=== PATIENT | male | born 1950 | race African-American/Black ===

== ENCOUNTER 2017-09-29 17:34 | Emergency (ER) | payer MEDICARE, OTHER ==
[~2017-09-29] VITALS: Ht 170.2 cm; Wt 70.9 kg
[~2017-09-29 17:34] MED LIST: CLONIDINE; LISINOPRIL; OXYC15TA82 PO
[2017-09-29 18:05] VITALS: BP 196/110
[2017-09-29] MEDS ORDERED: CLON.2 PO (18:12)
[2017-09-29] MEDS ORDERED: LISI-660 PO (18:12)
== END 2017-09-29 20:32 | disposition left against medical advice (07) ==
LOC: EMS 17:36
DX: Z53.21 Procedure and treatment not carried out due to patient leaving prior to being seen by health care provider (principal)

== ENCOUNTER 2017-10-06 11:55 | Emergency (ER) | payer MEDICARE, OTHER ==
[~2017-10-06] VITALS: Ht 170.2 cm; Wt 70.5 kg
[~2017-10-06 11:55] MED LIST changes: +CLON.2 PO; -CLONIDINE; +LISI-660 PO; -LISINOPRIL
[2017-10-06 14:08] LABS: BASOPHILS % (AUTO) 0.3 % (0.0-2.0); EOSINOPHILS % (AUTO) 1.1 % (1.0-6.0); HEMATOCRIT 46.1 % (41-53); HEMOGLOBIN 15.6 g/dL (13.5-17.5); LYMPHOCYTES # (AUTO) 1.2 K/uL (1.0-4.8); LYMPHOCYTES % (AUTO) 23.2 % (22.0-44.0); MEAN CORPUSCULAR HEMOGLOBIN 31.6 pg (26.0-34.0); MEAN CORPUSCULAR HGB CONC 33.8 G/dL (31.0-37.0); MEAN CORPUSCULAR VOLUME 94 fL (80-100); MONOCYTES # (AUTO) 0.3 K/uL (0.1-1.0); MONOCYTES % (AUTO) 6.3 % (2.0-9.0); NEUTROPHILS # (AUTO) 3.4 K/uL (1.8-7.7); NEUTROPHILS % (AUTO) 69.1 % (40.0-70.0); PLATELET COUNT (AUTO) 224 K/uL (150-450); RED BLOOD CELL COUNT(AUTO) 4.92 MIL/uL (4.50-5.90)
[2017-10-06] MEDS: CloNIDine HCL 0.1 MG TABLET PO ONE (14:08)
[2017-10-06] MEDS: LISINOPRIL 10 MG TABLET PO ONE (14:08)
[2017-10-06] MEDS: ASPIRIN 81 MG CHEWABLE TABLET PO ONE (14:09)
[2017-10-06] MEDS: TraMADol HCL 50 MG TABLET PO ONE (14:09)
[2017-10-06 14:25] LABS: ANION GAP 8 mmol/L (8-16); CALCIUM, TOTAL 9.4 mg/dL (8.8-10.5); CARBON DIOXIDE 29 mmol/L (22-29); CHLORIDE 100 mmol/L (98-107); CREATININE 0.93 mg/dL (0.60-1.30); GLOMERULAR FILTR. RATE CALC > 60 mL/min (>60); GLUCOSE,RANDOM 81 mg/dL (70-110); POTASSIUM 3.9 mmol/L (3.5-5.1); SODIUM SERUM 137 mmol/L (136-145); UREA NITROGEN, BLOOD 15 mg/dL (7-18)
[2017-10-06 14:47] LABS: ALANINE AMINOTRANSFERASE 63 U/L (12-78); ALBUMIN 3.7 g/dL (3.4-5.0); ALKALINE PHOSPHATASE 67 U/L (46-116); ASPARTATE AMINOTRANSFERASE 54 U/L (15-37); BILIRUBIN,TOTAL 0.6 mg/dL (0.1-1.0); CREATINE KINASE MB 2.5 ng/mL (0-5); CREATINE KINASE, TOTAL 250 U/L (39-308)
[2017-10-06 15:08] LABS: B-TYPE NATRIURETIC PEPTIDE 34 pg/mL (0-100)
[2017-10-06 15:45] VITALS: BP 159/94
== END 2017-10-06 16:19 | disposition home or self-care (01) ==
LOC: EMS 11:56
DX: S20.212A Contusion of left front wall of thorax, initial encounter (principal); I10 Essential (primary) hypertension; W22.8XXA Striking against or struck by other objects, initial encounter; Y93.89 Activity, other specified; Y92.89 Other specified places as the place of occurrence of the external cause; Y99.8 Other external cause status
CPT/HCPCS: 71046; 93005; 99285

== ENCOUNTER 2020-11-13 00:04 | Emergency (ER) | payer MEDICARE, OTHER ==
[~2020-11-13] VITALS: Ht 172.7 cm; Wt 61.4 kg
[~2020-11-13 00:04] MED LIST changes: -CLON.2 PO; +CLON0.2T2 PO; -LISI-660 PO; +LISI-892 PO
[2020-11-13 00:38] LABS: GLUCOSE,POINT OF CARE 83 MG/DL (70-110)
[2020-11-13] MEDS ORDERED: SODIUM CHLORIDE 0.9% 1,000 ML IV ONE (01:45)
[2020-11-13 04:52] VITALS: BP 139/96
[2020-11-13 11:14] LABS: SODIUM SERUM 141 mmol/L (136-145)
[2020-11-13 11:15] LABS: ALANINE AMINOTRANSFERASE 95 U/L (12-78); ALBUMIN 3.3 g/dL (3.4-5.0); ALKALINE PHOSPHATASE 60 U/L (46-116); ANION GAP 14 mmol/L (8-16); ASPARTATE AMINOTRANSFERASE 105 U/L (15-37); BILIRUBIN,TOTAL 0.5 mg/dL (0.1-1.0); CALCIUM, TOTAL 9.3 mg/dL (8.8-10.5); CARBON DIOXIDE 23 mmol/L (22-29); CHLORIDE 104 mmol/L (98-107); CREATININE 1.54 mg/dL (0.60-1.30); GLOMERULAR FILTR. RATE CALC 54 mL/min (>60); GLUCOSE,RANDOM 89 mg/dL (70-110); POTASSIUM 3.5 mmol/L (3.5-5.1); TOTAL PROTEIN, SERUM 6.6 g/dL (6.4-8.2); UREA NITROGEN, BLOOD 15 mg/dL (7-18)
[2020-11-13 11:16] LABS: ACETAMINOPHEN < 2 mcg/mL (10-30)
[2020-11-13 11:18] LABS: HEMATOCRIT 42.9 % (41-53); HEMOGLOBIN 14.4 g/dL (13.5-17.5); MEAN CORPUSCULAR HEMOGLOBIN 32.9 pg (26.0-34.0); MEAN CORPUSCULAR VOLUME 98 fL (80-100)
[2020-11-13 11:19] LABS: BASOPHILS # (AUTO) 0.01 K/uL (0.00-0.20); BASOPHILS % (AUTO) 0.2 % (0.0-2.0); EOSINOPHILS # (AUTO) 0.04 K/uL (0.00-0.70); EOSINOPHILS % (AUTO) 0.7 % (1.0-6.0); LYMPHOCYTES # (AUTO) 1.5 K/uL (1.0-4.8); LYMPHOCYTES % (AUTO) 28.1 % (22.0-44.0); MEAN CORPUSCULAR HGB CONC 33.6 G/dL (31.0-37.0); MONOCYTES # (AUTO) 0.5 K/uL (0.1-1.0); MONOCYTES % (AUTO) 8.3 % (2.0-9.0); NEUTROPHILS # (AUTO) 3.4 K/uL (1.8-7.7); NEUTROPHILS % (AUTO) 62.3 % (40.0-70.0); PLATELET COUNT (AUTO) 195 K/uL (150-450); RED CELL DISTRIBUTION WIDTH 12.2 % (11.5-14.5)
== END 2020-11-13 05:06 | disposition home or self-care (01) ==
LOC: EMS 00:05
DX: T50.7X1A Poisoning by analeptics and opioid receptor antagonists, accidental (unintentional), initial encounter (principal); R74.01 Elevation of levels of liver transaminase levels; R79.89 Other specified abnormal findings of blood chemistry; F41.9 Anxiety disorder, unspecified; I10 Essential (primary) hypertension; Z79.899 Other long term (current) drug therapy; Y92.89 Other specified places as the place of occurrence of the external cause
CPT/HCPCS: 71045; 80053; 82962; 85025; 93005; 96360; 99285; G0480; G0481

== ENCOUNTER 2023-09-02 13:56 | Inpatient (IN) | payer MEDICARE, OTHER ==
[~2023-09-02] VITALS: Ht 170.2 cm; Wt 62.2 kg
[2023-09-02 14:47] LABS: BASOPHILS % (AUTO) 1.1 % (0.0-2.0); EOSINOPHILS % (AUTO) 0.8 % (1.0-6.0); HEMATOCRIT 47.1 % (41-53); HEMOGLOBIN 15.9 g/dL (13.5-17.5); LYMPHOCYTES # (AUTO) 0.9 K/uL (1.0-4.8); LYMPHOCYTES % (AUTO) 22.5 % (22.0-44.0); MEAN CORPUSCULAR HEMOGLOBIN 32.5 pg (26.0-34.0); MEAN CORPUSCULAR HGB CONC 33.8 G/dL (31.0-37.0); MEAN CORPUSCULAR VOLUME 96 fL (80-100); MONOCYTES # (AUTO) 0.4 K/uL (0.1-1.0); MONOCYTES % (AUTO) 8.9 % (2.0-9.0); NEUTROPHILS # (AUTO) 2.7 K/uL (1.8-7.7); NEUTROPHILS % (AUTO) 66.7 % (40.0-70.0); PLATELET COUNT (AUTO) 177 K/uL (150-450); RED BLOOD CELL COUNT(AUTO) 4.88 MIL/uL (4.50-5.90); RED CELL DISTRIBUTION WIDTH 13.9 % (11.5-14.5)
[2023-09-02 14:53] LABS: ANION GAP 6 mmol/L (8-16); CALCIUM, TOTAL 9.9 mg/dL (8.8-10.5); CARBON DIOXIDE 28 mmol/L (22-29); CHLORIDE 105 mmol/L (98-107); CREATININE 0.97 mg/dL (0.60-1.30); GLOMERULAR FILTR. RATE CALC > 60 mL/min (>60); GLUCOSE,RANDOM 77 mg/dL (70-110); POTASSIUM 4.3 mmol/L (3.5-5.1); SODIUM SERUM 139 mmol/L (136-145); UREA NITROGEN, BLOOD 9 mg/dL (7-18)
[2023-09-02 14:58] LABS: ALANINE AMINOTRANSFERASE 55 U/L (12-78); ALKALINE PHOSPHATASE 66 U/L (46-116); ASPARTATE AMINOTRANSFERASE 41 U/L (15-37); BILIRUBIN,TOTAL 0.8 mg/dL (0.1-1.0); TOTAL PROTEIN, SERUM 8.3 g/dL (6.4-8.2)
[2023-09-02 15:00] LABS: TROPONIN I-HIGH SENSITIVITY 60 ng/L (<76)
[2023-09-02 15:18] LABS: B-TYPE NATRIURETIC PEPTIDE 63 pg/mL (0-100)
[2023-09-02] MEDS ORDERED: LABETALOL HCL 5 MG/ML 20 ML VIAL IVP ONE (15:30)
[2023-09-02] MEDS ORDERED: ACETAMINOPHEN 325 MG TABLET PO PRN (17:00)
[2023-09-02] MEDS ORDERED: ONDANSETRON HCL 4 MG/2 ML VIAL IVP PRN (17:00)
[2023-09-02] MEDS ORDERED: MAGNESIUM HYDROXIDE SUSPENSION 30 ML UDCUP PO PRN (17:00)
[2023-09-02] MEDS ORDERED: OxyCODONE HCL/ACETAMINOPHEN 5-325 MG TABLET PO PRN (17:00)
[2023-09-02 17:10] LABS: COVID AG,FIA SOURCE NASAL SWAB
[2023-09-02] MEDS: ASPIRIN 81 MG CHEWABLE TABLET PO SCH (17:14)
[2023-09-02] MEDS: AmLODIPine BESYLATE 10 MG TABLET PO SCH (17:14)
[2023-09-02 17:17] LABS: APPEARANCE,URINE CLEAR (CLEAR); BILIRUBIN,URINE NEGATIVE (NEGATIVE); COLOR,URINE YELLOW (YELLOW); GLUCOSE, URINE (UA) NEGATIVE (NEGATIVE); KETONES,URINE TRACE mg/dL (NEGATIVE); LEUKOCYTE ESTERASE ,URINE NEGATIVE (NEGATIVE); NITRATE,URINE NEGATIVE (NEGATIVE); OCCULT BLOOD,URINE NEGATIVE (NEGATIVE); PROTEIN,URINE TRACE mg/dL (NEGATIVE); SPECIFIC GRAVITIY, URINE 1.022 (1.003-1.030); UROBILINOGEN,URINE <=1.0 mg/dL (<=1.0)
[2023-09-02 17:23] LABS: ALCOHOL, URINE DRUG SCREEN NEGATIVE (NEGATIVE); AMPHET/METH SCREEN,URINE NEGATIVE (NEGATIVE); BARBITURATE SCREEN, URINE NEGATIVE (NEGATIVE); BENZODIAZEPINES SCREEN,URINE NEGATIVE (NEGATIVE); CANNABINOID SCREEN,URINE NEGATIVE (NEGATIVE); COCAINE SCREEN,URINE NEGATIVE (NEGATIVE); METHADONE SCREEN, URINE NEGATIVE (NEGATIVE); OPIATE SCREEN,URINE NEGATIVE (NEGATIVE); PHENCYCLIDINE SCREEN,URINE NEGATIVE (NEGATIVE)
[2023-09-02 17:59] LABS: SARS-COV2 (COVID) ANTIGEN,FIA Negative (Negative)
[2023-09-02] MEDS: CloNIDine HCL 0.1 MG TABLET PO PRN (18:23)
[2023-09-02 20:34] VITALS: BP 143/94; PULSE 56; RESP 18; TEMP 98.2
[2023-09-02] MEDS: DOCUSATE SODIUM 100 MG CAPSULE PO SCH (20:48)
[2023-09-02] MEDS: LOSARTAN POTASSIUM 25 MG TABLET PO SCH (20:48)
[2023-09-02] MEDS: HEPARIN SODIUM,PORCINE 5,000 UNITS/ML VIAL SQ SCH (23:33)
[2023-09-03] VITALS (7 sets, daily range): BP systolic 97–161; BP diastolic 65–83; PULSE 46–70; RESP 16–18; TEMP 97.7–98
[2023-09-03] MEDS: CloNIDine HCL 0.1 MG TABLET PO PRN (06:15)
[2023-09-03] MEDS: DOCUSATE SODIUM 100 MG CAPSULE PO SCH ×2 (08:05→20:19)
[2023-09-03] MEDS: ATORVASTATIN CALCIUM 20 MG TABLET PO SCH (08:05)
[2023-09-03] MEDS: HEPARIN SODIUM,PORCINE 5,000 UNITS/ML VIAL SQ SCH ×3 (08:06→23:57)
[2023-09-03] MEDS: ASPIRIN 81 MG CHEWABLE TABLET PO SCH (08:06)
[2023-09-03] MEDS: LOSARTAN POTASSIUM 25 MG TABLET PO SCH ×2 (08:07→20:19)
[2023-09-03] MEDS: AmLODIPine BESYLATE 10 MG TABLET PO SCH (08:07)
[2023-09-03] MEDS: FAMOTIDINE 20 MG TABLET PO SCH (08:07)
[2023-09-04 04:50] VITALS: BP 148/79; PULSE 56; RESP 18; TEMP 97.8
[2023-09-04 07:35] VITALS: BP 132/80; PULSE 52; RESP 18; TEMP 98
[2023-09-04] MEDS: DOCUSATE SODIUM 100 MG CAPSULE PO SCH (09:18)
[2023-09-04] MEDS: AmLODIPine BESYLATE 10 MG TABLET PO SCH (09:18)
[2023-09-04] MEDS: ATORVASTATIN CALCIUM 20 MG TABLET PO SCH (09:18)
[2023-09-04] MEDS: ASPIRIN 81 MG CHEWABLE TABLET PO SCH (09:18)
[2023-09-04] MEDS: FAMOTIDINE 20 MG TABLET PO SCH (09:19)
[2023-09-04] MEDS: LOSARTAN POTASSIUM 25 MG TABLET PO SCH (09:19)
[2023-09-04] MEDS: HEPARIN SODIUM,PORCINE 5,000 UNITS/ML VIAL SQ SCH (09:19)
[2023-09-04 11:00] VITALS: BP 126/89; PULSE 90; RESP 18; TEMP 98.3
[2023-09-04] MEDS ORDERED: AMLO-258 PO (11:10)
[2023-09-04 15:00] VITALS: BP 130/82; PULSE 66; RESP 18; TEMP 98
== END 2023-09-04 15:30 | disposition home or self-care (01) | DRG 199 ==
LOC: EMS 14:11 → 5S 17:59
PROVIDERS: ADMIT Internal Medicine; ATTEND Internal Medicine
DX: I16.1 Hypertensive emergency (principal); F41.9 Anxiety disorder, unspecified; R29.6 Repeated falls; I10 Essential (primary) hypertension; R53.1 Weakness; Z82.49 Family history of ischemic heart disease and other diseases of the circulatory system; Z79.899 Other long term (current) drug therapy; Z20.822 Contact with and (suspected) exposure to COVID-19
CPT/HCPCS: 70450; 71045; 80053; 80307; 81003; 83880; 84484; 85025; 93005; 93306; 97116; 97162; 97530; 99291; J1644; J3490; 36415-L1; 36415-TC